=== PATIENT | female | born 1945 | race Caucasian/White ===

== ENCOUNTER → 2018-12-20 | Outpatient (CLI) | payer OTHER ==
[~2018-12-20] MED LIST: CIPROFLOXACIN500 M1 PO; FLAGYL500 MG PO; LISINOPRIL-HCT1 EACH PO; POTASSIUM20; POTASSIUM99 M1 PO; TUCKS1 EAC1 TOP; XANAX 0.5 MG0.5 MG PO; [UNRECOGNIZED DRUG - OTHER]
[2018-12-20 10:10] LABS: CREATININE 1.1 mg/dL (0.6-1.0)
== END ==
LOC: CAT 09:29
PROVIDERS: Family Medicine
DX: K57.30 Diverticulosis of large intestine without perforation or abscess without bleeding (principal); K76.89 Other specified diseases of liver; N28.1 Cyst of kidney, acquired; J98.11 Atelectasis; I70.8 Atherosclerosis of other arteries; R63.4 Abnormal weight loss

== ENCOUNTER → 2019-02-06 | Outpatient (CLI) | payer OTHER ==
[~2019-02-06] VITALS: Ht 172.7 cm; Wt 49.9 kg
[~2019-02-06] MED LIST changes: +AVAPRO 150 MG150 M1 PO; +LIPITOR 40 MG T40 M1 PO; +PLAVIX 75 MG TA75 M1 PO
[2019-02-06 08:56] VITALS: BP 145/99
[2019-02-06 10:26] LABS: HEMATOCRIT 39.6 % (37.0-47.0); HEMOGLOBIN 13.1 gm/dL (12.0-15.0); MCH 29.5 pg (26.0-34.0); MCV 89.2 fL (80.0-100.0); RBC 4.43 mil/uL (4.20-5.00); RDW 13.4 % (10.5-14.5); WBC 6.9 thou/uL (4.0-11.0)
[2019-02-06 10:35] LABS: CALCIUM 8.9 mg/dL (8.5-10.1); CREATININE 0.8 mg/dL (0.6-1.0); POTASSIUM 4.1 mmol/L (3.5-5.1)
== END | disposition home or self-care (01) ==
LOC: SPEC 08:11
PROVIDERS: Nuclear Medicine Nuclear Cardiology
DX: I70.213 Atherosclerosis of native arteries of extremities with intermittent claudication, bilateral legs (principal); I70.1 Atherosclerosis of renal artery; K55.1 Chronic vascular disorders of intestine; I77.4 Celiac artery compression syndrome; I10 Essential (primary) hypertension; K21.9 Gastro-esophageal reflux disease without esophagitis; Z86.010 Personal history of colon polyps; Z98.890 Other specified postprocedural states; Z87.891 Personal history of nicotine dependence; Z91.040 Latex allergy status; Z88.0 Allergy status to penicillin; Z88.8 Allergy status to other drugs, medicaments and biological substances; Z79.899 Other long term (current) drug therapy

== ENCOUNTER 2019-02-07 05:33 | Emergency (ER) | payer OTHER ==
[~2019-02-07] VITALS: Ht 172.7 cm; Wt 50.4 kg
[~2019-02-07 05:33] MED LIST changes: -LIPITOR 40 MG T40 M1 PO
[2019-02-07] MEDS ORDERED: LIPITOR 40 MG T40 M1 PO (05:53)
[2019-02-07 06:30] VITALS: BP 172/68
== END 2019-02-07 06:53 | disposition home or self-care (01) ==
LOC: ER 05:33
DX: L76.22 Postprocedural hemorrhage of skin and subcutaneous tissue following other procedure (principal); Y83.9 Surgical procedure, unspecified as the cause of abnormal reaction of the patient, or of later complication, without mention of misadventure at the time of the procedure; Y82.9 Unspecified medical devices associated with adverse incidents; I10 Essential (primary) hypertension; I73.9 Peripheral vascular disease, unspecified; Z88.0 Allergy status to penicillin; Z88.6 Allergy status to analgesic agent; Z88.8 Allergy status to other drugs, medicaments and biological substances; Z91.040 Latex allergy status; Z91.018 Allergy to other foods

== ENCOUNTER 2019-04-03 11:39 | Inpatient (IN) | payer OTHER ==
[~2019-04-03] VITALS: Ht 172.7 cm; Wt 52.8 kg
--- NOTE | ~2019-04-03 | HC ---
[facility] [place] [address] CONSULTATION Name: RIDGE EMDINA Room #: 453-P [facility] IN M.R.#: [id number] Admission: 04/03/19 ������������������ Attend Phys: Sudarshan Lay MD Discharge: ������������������ Date of : 43 Report #: [id number] THIS REPORT FOR: //name// CC: Sudarshan Singletary DO DATE OF SERVICE: 04/03/2019 PRIMARY CARE PHYSICIAN: Shireen Singletary DO. REFERRAL PHYSICIAN: Sudarshan Lay MD. REASON FOR REFERRAL: Hemoptysis, pneumonia. HISTORY OF PRESENT ILLNESS: The patient is a 73-year-old white female who presents to the ED with hemoptysis. A pulmonary consultation was requested. The patient has smoked most of her life, smoking less than a pack a day. She has never been diagnosed with COPD. She has been diagnosed with bronchitis for many years. More recently, the patient was treated for peripheral vascular disease. She had a stent placed in her lower extremities. Plavix was started around a few months ago. Ever since then, the patient has had episodic mild speckled hemoptysis starting about two months ago. She was treated for bronchitis. Hemoptysis did not persist. About three days ago, she started to notice bright red blood with cough. She could not quantify, but it appears to be less than a half a cupful. It is bright red on the tissue. Otherwise, denies any night sweats or chills. The patient has a weight loss around 08/2018 due to peptic ulcer disease. She states that her appetite has been stable. Weight has been stable. She denies any history of tuberculosis or exposure to TB. PAST MEDICAL HISTORY: Notable for hypertension, hyperlipidemia, peptic ulcer disease, peripheral artery disease, undergoing stent placement in lower extremities, had been on Plavix for the last few months. PAST SURGICAL HISTORY: Hysterectomy. ALLERGIES: TO PENICILLIN, IRON, ASPIRIN, REACTIONS UNSPECIFIED. SHE IS [facility] [address] [place] [address] CONSULTATION Name: RIDGE MEDINA Room #: 453-P [facility] IN ..#: [id number] Admission: 04/03/19 ������������������ Attend Phys: Sudarshan Lay MD Discharge: ������������������ Date of : 43 Report #: [id number] SENSITIVE TO LATEX AND NUTS. HOME MEDICATIONS: Plavix 75 mg once a day, Avapro, Lipitor, and Xanax. FAMILY HISTORY: Both parents passed. The patient's father was diagnosed with lung cancer in his 50s. SOCIAL HISTORY: She is . She lives with her son. She had three children, one child . As mentioned above, otherwise she denies any alcohol use. Tobacco history as mentioned above. She states she only smokes two cigarettes per day for many years. REVIEW OF SYSTEMS: As mentioned above, otherwise 10-point system review negative. PHYSICAL EXAMINATION: GENERAL: She is awake, alert, in no distress. VITAL SIGNS: Temperature is 97.9 degrees Fahrenheit, pulse is 95, respiratory rate is 18, blood pressure 130/74 mmHg, saturation is 90%. HEENT: Normocephalic, atraumatic. NECK: Supple, without any lymphadenopathy or thyromegaly. CHEST: Breath sounds are good with decrease in the left upper lung field. Few scattered crackles. No wheezes. CARDIOVASCULAR: Normal S1, S2. There is no murmur or gallop. There is no JVD. There is no carotid bruit. Pulses are 2+/4+ bilaterally. ABDOMEN: Soft, nontender, no organomegaly or masses felt. GENITOURINARY: Deferred. RECTAL: Deferred. EXTREMITIES: There is no edema, cyanosis or clubbing. LABORATORY DATA: CT chest and chest x-ray reviewed. This revealed left upper lobe and part of left lower lobe consolidation, questionable mass-like density. There is a rim of moderate left pleural effusion, which appears to be loculated. No evidence of pulmonary embolus. No evidence of mediastinal pathology. Chest x-ray shows similar findings. Electrolytes are normal. Creatinine is 1.1. Liver enzymes are grossly unremarkable. WBC 7200, hemoglobin is normal, platelets are normal, no evidence of bandemia, lymphopenia is present. Albumin 3.1. IMPRESSION: 1. Hemoptysis in this 73-year-old white female. She is on Plavix. Chest x-ray and chest CT show extensive consolidation involving the left upper lobe, part of the left lower lobe with questionable mass-like abnormalities. Hemoptysis, likely related to pneumonia. However, cannot rule out a malignancy. 2. Left upper lobe/left lower lobe consolidation, questionable lung mass. [address] [address] CONSULTATION Name: RIDGE MEDINA Room #: 453-P ADM IN M.R.#: [id number] Admission: 04/03/19 ������������������ Attend Phys: Sudarshan Lay MD Discharge: ������������������ Date of : 43 Report #: [id number] Would treat for pneumonia for now and reassess. Send sputum for cytology. 3. Lifelong history of tobacco use though the patient has smoked less than a pack a day. No known chronic obstructive lung disease. 4. Peripheral artery disease, recent stent and has been on Plavix for the last couple of months. 5. Hypertension. 6. History of peptic ulcer disease. For that reason, she has lost weight August last year. She states that her weight has been stable. RECOMMENDATION: Given hemoptysis, Plavix will need to be on hold. Would treat for presumed community-acquired pneumonia. Would treat for at least 7-10 days. Follow up chest x-ray. If infiltrates or density persist, will need to proceed with further diagnostic study including bronchoscopy. For now, send sputum for Gram stain, culture and sensitivity and cytology. She may need a cough suppressant for hemoptysis. We will also recommend quantitating hemoptysis. Should hemoptysis worsens, she may need urgent bronchoscopy. DVT prophylaxis in the form of SCDs recommended. Thank you for this consultation. ��������������������������������������������� ���������������������������������������� By: ��������������������������������������������� 1555 Tristan Johnson MD /nt
[2019-04-03 11:39] VITALS: BP 130/74
[~2019-04-03 11:39] MED LIST changes: +LIPITOR 40 MG T40 M1 PO
[2019-04-03 12:26] LABS: ABSOLUTE NEUTROPHILS 5.9 thou/uL (1.4-8.2); BASOPHILS 0.9 % (0.0-2.0); EOSINOPHILS 0.4 % (0.0-3.0); HEMATOCRIT 43.6 % (37.0-47.0); HEMOGLOBIN 14.4 gm/dL (12.0-15.0); LYMPHOCYTES 10.5 % (24.0-44.0); MCH 29.1 pg (26.0-34.0); MCV 88.2 fL (80.0-100.0); MONOCYTES 6.8 % (1.0-8.0); PLATELET COUNT 354 thou/uL (150-400); POLYS 81.4 % (36.0-66.0); RBC 4.94 mil/uL (4.20-5.00); RDW 13.3 % (10.5-14.5); WBC 7.2 thou/uL (4.0-11.0)
[2019-04-03 12:32] LABS: ANION GAP 8 mmol/L (7-16); BUN 19 mg/dL (7-18); CALCIUM 9.4 mg/dL (8.5-10.1); CHLORIDE 101 mmol/L (98-107); CO2 28 mmol/L (21-32); CREATININE 1.1 mg/dL (0.6-1.0); GLUCOSE 112 mg/dL (74-106); POTASSIUM 4.6 mmol/L (3.5-5.1); SODIUM 137 mmol/L (136-145)
[2019-04-03 12:42] LABS: ALBUMIN 3.1 g/dL (3.4-5.0); SGOT 20 U/L (15-37); SGPT 21 U/L (30-65); TOTAL BILIRUBIN 0.5 mg/dL (<0.1-1.0); TOTAL PROTEIN 6.9 g/dL (6.4-8.2); TROPONIN-I <0.06 ng/mL (<0.06)
[2019-04-03 15:38] VITALS: BP 112/38
[2019-04-03 16:25] VITALS: BP 144/80
--- NOTE | 2019-04-03 16:29 | NUR ---
FIRST ATTEMPT TO CALL REPORT; WAS TOLD OSIEL WOULD "NEED TO CALL BACK".
[2019-04-03 16:51] VITALS: BP 128/59
[2019-04-03] MEDS ORDERED: PROTONIX40 M1 PO (17:43)
[2019-04-03] MEDS ORDERED: VENTOLIN HFA 1818 GM INH (17:44)
[2019-04-03] MEDS ORDERED: BREO ELLIPTA 11 EACH IH (17:46)
--- NOTE | 2019-04-03 18:26 | NUR ---
PATIENT ARIVED FROM ED FOR CAP. ALERT X4, FROM HOME WITH SON. UP AB ISABEL, ABLE TO MAKE NEEDS KNOWN. CONSULT FOR DR CLARK FOR LUNG MASS. ADDMISSION ASSESMENT AND HISTORY COMPLETE. CALL LIGHT IN REACH.
[2019-04-03 19:47] VITALS: BP 124/63
--- NOTE | 2019-04-04 04:28 | NUR ---
Assumed pt care @ 2200. Pt is A/OX4,pleasant. Up ad wiley in room,voiding without any problems. VSS.Denies pain on assessment. Did have one episode of coughing blood,unable to obtain specimen since it was stuck on the toilet paper;specimen cup provided incase she does cough more.Resting quietly at this time no distress noted will continue to monitor pt.
[2019-04-04 04:43] VITALS: BP 103/66
[2019-04-04 05:32] LABS: CALCIUM 8.9 mg/dL (8.5-10.1); CREATININE 0.9 mg/dL (0.6-1.0); POTASSIUM 4.6 mmol/L (3.5-5.1)
[2019-04-04 05:46] LABS: HEMATOCRIT 36.8 % (37.0-47.0); MCH 29.1 pg (26.0-34.0); MCHC 32.8 g/dL (28.0-37.0); MCV 88.8 fL (80.0-100.0); RBC 4.15 mil/uL (4.20-5.00); WBC 6.2 thou/uL (4.0-11.0)
[2019-04-04 05:48] LABS: HEMOGLOBIN 12.1 gm/dL (12.0-15.0)
--- NOTE | 2019-04-04 07:37 | EKG ---
[address] [address] ELECTROCARDIOGRAM REPORT Name: RIDGE MEDINA Room #: 453-P ADM IN M.R.#: [id number] ������������������ Admission: 04/03/19 ������������������ Attend Phys: Sudarshan Lay MD Discharge: ������������������ Date of : 43 Report #: [id number] ����������������������������������������������������������������� [id number] THIS REPORT FOR: //name// [facility] ED Test Date: 2019-04-03 Test Time: 11:56:31 Pat Name: RIDGE MEDINA Department: Room: [facility] Gender: F Deputy Clerk Of Superior Court: calvin : 1945 Requested By: Tess Adhikari Order Number: [id number] MD: Antonio Cheng Measurements Intervals Holt Rate: 91 P: 91 MT: 161 QRS: 82 QRSD: 60 T: 79 QT: 336 QTc: 414 Interpretive Statements Sinus rhythm Anterior infarct, old Compared to ECG 09/30/2012 22:26:52 Atrial premature complex(es) no longer present Electronically Signed On 04-04-2019 7:37:03 CDT by Antonio Cheng [email or web address] ��������������������������������������������� <ELECTRONICALLY SIGNED> ���������������������������������������� By: Antonio Cheng MD, [facility] ��������������������������������������������� 04/04/19 0737 [id number] Antonio Cheng MD, [facility] /EPI
[2019-04-04 07:53] VITALS: BP 137/69
--- NOTE | 2019-04-04 09:30 | NUR ---
Nutrition: assess d/t low BMI. Pt admitted for PNA. Pt states that she lost 15-20 lbs in past 6 months d/t recent health issues, but has been gaining it back slowly. She has been thin most of her life. Her appetite is very good and she is aware of meal ordering. Provided list of food preferences. She does not want any nutritional supplements; she says she eats well without them. Consider low nutrition risk at this time.
--- NOTE | 2019-04-04 14:36 | NUR ---
PT ADMITTED RELATED TO PNA. CM REVIEWED CHART AND SPOKE WITH CARE TEAM. CM MET WITH PT AT BEDSIDE THIS DAY. PT IS A&O X4. CM ROLE INTRODCUED. PT INDICATED SHE LIVES IN A MOBILE HOME WITH HER SON WITH 7 STEPS TO ENTER AND NO STEPS INSIDE. 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 PT INDICATED NO HH HX. PT INDICATED SHE PLANS TO RETURN HOME ONCE MEDICALLY STABLE. CM TO FOLLOW INDICATED WITH DC PLANNING.
[2019-04-04 14:46] VITALS: BP 110/61
--- NOTE | 2019-04-04 18:53 | NUR ---
PT STABLE THROUGHOUT SHIFT. PT HAD NO C/O PAIN OR SOA. PT VERY COOPERATIVE WITH POC. FAMILY AT BEDSIDE. PT RESTING COMFORTABLY.
[2019-04-04 20:06] VITALS: BP 106/64
--- NOTE | 2019-04-05 02:14 | NUR ---
ASSUMED CARE OF PT FROM DAY SHIFT PT HAVE NO COMPLIANTS ESG PLAN FOR AM NO ACTIVE BLEEDING NOTED NO COUGH NOTED DRINKING PO FLUIDS AND SO FAR TOLERATING WELL, DISCUSSED PLAN OF CARE AND PT IS AGREEABLE, WILL CONITUE WITH CURRENT PLAN OF CARE.
[2019-04-05 04:29] VITALS: BP 134/81
[2019-04-05 07:09] VITALS: BP 148/70
--- NOTE | 2019-04-05 13:06 | NUR ---
Received awake on bed. Due medications given as prescribed. With IV at R FA- patent and intact. A+Ox3-4. Up ad wiley. Visited by relatives today. No active bleeding, hemoptysis noted today. Vital signs stable. Seen and examined by Dr. Lay- to continue antibiotics.
[2019-04-05 14:15] VITALS: BP 136/67
--- NOTE | 2019-04-05 15:16 | HC ---
[facility] [place] [address] CONSULTATION Name: RIDGE MEDINA Room #: 453-P ADM IN M.R.#: [id number] Admission: 04/03/19 ������������������ Attend Phys: Sudarshan Lay MD Discharge: ������������������ Date of : 43 Report #: [id number] THIS REPORT FOR: //name// CC: Sudarshan Singletary DATE OF SERVICE: 04/04/2019 TYPE OF REPORT: Infectious disease consultation. REASON FOR CONSULTATION: I was asked to evaluate concerning complicated pneumonia. HISTORY OF PRESENT ILLNESS: The patient is a 73-year-old smoker, longstanding, who presents with a 2-month history of cough with intermittent hemoptysis, which acutely worsened 2 days prior to her admission. She has had no history of pneumonia or chronic sinus disease. She has had no history of cancers. She has had a persistent cough with intermittent sputum production over the past 2 months. Around that time, she underwent bilateral femoral artery stenting. She is now on Plavix for anticoagulation, antiplatelet program. She denies any fever, chills or sweats. There has been no pleuritic pain. She denies any travel or HIV risk factors. She has had no exposure to other ill persons. No HIV risk factors reported. No tuberculosis exposure. She is a . ALLERGIES: PENICILLIN, IRON, ASPIRIN, LATEX and NUTS. MEDICATIONS: Plavix, which has been held, Avapro, Lipitor, Xanax and now on azithromycin, aztreonam and corticosteroids including Solu-Medrol. PAST MEDICAL HISTORY: Hypertension, hyperlipidemia, peptic ulcer disease, hiatal hernia, peripheral artery disease status post stents, hysterectomy and tobacco use. FAMILY HISTORY: Lung cancer. SOCIAL HISTORY: As noted above with no additions. REVIEW OF SYSTEMS: Ten-point review was negative other than what is described above, except for approximately 20-pound weight loss. PHYSICAL EXAMINATION: VITAL SIGNS: She is afebrile, hemodynamically stable. Saturations were normal. GENERAL: She is alert and cooperative and pleasant on room air. SKIN: Without rash or decubitus. HEENT: Eyes, without scleral icterus. Mouth was edentulous without mucositis. NECK: Supple, with no thyromegaly or mass. [facility] [address] [place] [address] CONSULTATION Name: RIDGE MEDINA Room #: 453-P ADM IN M.R.#: [id number] Admission: 04/03/19 ������������������ Attend Phys: Sudarshan Lay MD Discharge: ������������������ Date of : 43 Report #: [id number] LUNGS: With decreased breath sounds in the right posterior chest. There was some consolidation heard in the mid posterior chest. No rub. HEART: Regular, without murmur, gallop or rub. ABDOMEN: Soft and nontender. No hepatosplenomegaly or mass. The patient was very thin. EXTREMITIES: Without clubbing, cyanosis or edema. Cranial nerves intact. Strength in the upper and lower extremities was normal. Mood normal. LABORATORY STUDIES: Hemoglobin 12.1; white count 6.2 and platelet count 337,000. Sodium 138, potassium 4.6, bicarbonate 27 and creatinine 0.9. Liver function test normal. BNP 272. Lactate 1.2. RADIOLOGICAL DATA: Chest x-ray with a left upper lobe and lower lobe infiltrate with associated effusion. CT scan confirms the same with moderate effusion, which does appear to layer. Blood cultures are negative to date. Sputum is just sent down today. Urine antigens are pending. IMPRESSION: A 73-year-old long-term smoker with left lung consolidating infiltrate associated with hemoptysis and moderate left effusion. The patient is not toxic, does not have any fever or leukocytosis. She has been anticoagulated for peripheral vascular disease. I am considering community-acquired pneumonia versus pulmonary hemorrhage. Underlying malignancy is not yet ruled out. I doubt vasculitic disease or other granulomatous process. She is penicillin allergic. RECOMMENDATIONS: We will continue with azithromycin and cefepime. Await sputum culture. Check legionella PCR urine antigens. Check serologic studies TB screen. We will follow serial x-rays. May consider thoracentesis for further diagnostic testing. Check MRSA screen and HIV testing. ��������������������������������������������� <ELECTRONICALLY SIGNED> ���������������������������������������� By: Curt Larsen MD ��������������������������������������������� 04/05/19 1516 [id number] Curt Larsen MD /nt
--- NOTE | 2019-04-05 15:46 | NUR ---
PT IS TO HAVE A BRONCHOSOPY TOMORROW. CM TO FOLLOW INDICATED WITH DC PLANNING.
[2019-04-05 16:01] LABS: HIV ANTIBODY Non Reactive (Non Reactive)
[2019-04-05 20:07] VITALS: BP 141/58
--- NOTE | 2019-04-06 03:55 | NUR ---
ASSUMED CARE OF PT AT 1900HRS. PT IS AOX4 AND IS UP AD ISABEL. ABX TREATMENT CONTINUED. PT NPO FROM MN. NO OTHER S/S OF ACUTE DISTRESS. NO N/V AT THIS TIME. NO OTHER S/S OF ACUTE DISTRESS. WILL CONTINUE TO MONITOR.
[2019-04-06 04:49] VITALS: BP 121/59
[2019-04-06 06:41] VITALS: BP 146/74
[2019-04-06 11:30] VITALS: BP 138/90
--- NOTE | 2019-04-06 14:10 | NUR ---
TOWARDS POC PT HAD BRONCSCOPY AT SHIFT CHANGE, PT RETURNED IN HER ROOM AT AROUND 11OO. VSS, AFEBRILE, DENIES PAIN. NO CONCERNS VOICED. FAMILY AT BEDSIDE. WILL CONTINUE TO MONITOR.
[2019-04-06 20:30] VITALS: BP 124/75
--- NOTE | 2019-04-07 02:16 | NUR ---
ASSUMED CARE OF PT AT 1900HRS. PT IS AOX4 AND UP AD ISABEL. BREATHING TREATMENT AND O2 VIA NC CONTINUED. ABX TREATMENT CONTINUED. NO MAJOR COMPLICATIONS POST BRONCHOSCOPY W/BIOPSY. NO OTHER S/S OF ACUTE DISTRESS. WILL CONTINUE TO MONITOR.
[2019-04-07 03:40] VITALS: BP 126/77
[2019-04-07 04:33] LABS: HEMATOCRIT 35.8 % (37.0-47.0); HEMOGLOBIN 11.6 gm/dL (12.0-15.0); MCH 28.8 pg (26.0-34.0); MCHC 32.4 g/dL (28.0-37.0); MCV 89.1 fL (80.0-100.0); RBC 4.02 mil/uL (4.20-5.00); RDW 13.5 % (10.5-14.5); WBC 11.3 thou/uL (4.0-11.0)
[2019-04-07 04:54] LABS: CALCIUM 8.7 mg/dL (8.5-10.1); CREATININE 0.8 mg/dL (0.6-1.0); POTASSIUM 4.6 mmol/L (3.5-5.1)
[2019-04-07 07:55] VITALS: BP 139/64
[2019-04-07] MEDS ORDERED: KEFLEX500 M1 PO (10:18)
[2019-04-07 10:43] VITALS: BP 139/64
--- NOTE | 2019-04-07 11:34 | NUR ---
PT VS STABLE THIS MORNING. PT'S BREATHING IS MUCH IMPROVED AND SHE IS ANXIOUS TO DISCHARGE. PT LEFT UNIT VIA WHEELCHAIR TO PRIVATE VEHICLE. PT GIVEN DC INSTRUCTIONS, F/U INSTRUCTIONS AND RX.
[2019-04-07 23:06] LABS: ADENOVIRUS Negative (Negative); INFLUENZA A Negative (Negative); INFLUENZA B Negative (Negative); METAPNEUMOVIRUS Negative (Negative); PARAINFLUENZA 1 Negative (Negative); PARAINFLUENZA 2 Negative (Negative); PARAINFLUENZA 3 Negative (Negative); RHINOVIRUS Negative (Negative); RSV A Negative (Negative); RSV B Negative (Negative)
== END 2019-04-07 11:42 | disposition home or self-care (01) | DRG 177 ==
LOC: ER 11:39 → 4W 13:36 → EROBS 13:36 → 4W 16:55 → ENTRNSPT 04-07 11:41 → 4W 04-07 11:42
PROVIDERS: Nurse Practitioner Family; Specialist; ADMIT Hospitalist
PROC: 0BDB8ZX Extraction of Left Lower Lobe Bronchus, Via Natural or Artificial Opening Endoscopic, Diagnostic (ICD-10-PCS; principal; 2019-04-06)
PROC: 0BBB8ZX Excision of Left Lower Lobe Bronchus, Via Natural or Artificial Opening Endoscopic, Diagnostic (ICD-10-PCS; principal; 2019-04-06)
PROC: 0B9J8ZX Drainage of Left Lower Lung Lobe, Via Natural or Artificial Opening Endoscopic, Diagnostic (ICD-10-PCS; principal; 2019-04-06)
DX: J69.0 Pneumonitis due to inhalation of food and vomit (principal); J96.01 Acute respiratory failure with hypoxia; R04.2 Hemoptysis; I10 Essential (primary) hypertension; E78.5 Hyperlipidemia, unspecified; I73.9 Peripheral vascular disease, unspecified; K44.9 Diaphragmatic hernia without obstruction or gangrene; Z90.710 Acquired absence of both cervix and uterus; Z86.010 Personal history of colon polyps; Z88.0 Allergy status to penicillin; Z88.6 Allergy status to analgesic agent; Z91.040 Latex allergy status; Z91.018 Allergy to other foods; Z87.11 Personal history of peptic ulcer disease; Z95.820 Peripheral vascular angioplasty status with implants and grafts; Z87.891 Personal history of nicotine dependence; Z80.1 Family history of malignant neoplasm of trachea, bronchus and lung; Z71.6 Tobacco abuse counseling; Z79.899 Other long term (current) drug therapy
CPT/HCPCS: 10040; 10045; 62110; 62900; 70005

== ENCOUNTER → 2019-04-13 | Outpatient (CLI) | payer OTHER | LOC: RAD 09:03 | DX: J18.9 Pneumonia, unspecified organism (principal); J90 Pleural effusion, not elsewhere classified ==

== ENCOUNTER → 2019-05-03 | Outpatient (CLI) | payer OTHER ==
[~2019-05-03] MED LIST changes: +BREO ELLIPTA 11 EACH IH; +KEFLEX500 M1 PO; +PROTONIX40 M1 PO; +VENTOLIN HFA 1818 GM INH
== END ==
LOC: MRI 10:42
DX: I67.82 Cerebral ischemia (principal); R90.82 White matter disease, unspecified; C34.32 Malignant neoplasm of lower lobe, left bronchus or lung; Z88.8 Allergy status to other drugs, medicaments and biological substances; Z88.0 Allergy status to penicillin

== ENCOUNTER 2019-06-01 08:25 | Inpatient (IN) | payer OTHER ==
[2019-06-01] VITALS (8 sets, daily range): BP systolic 84–165; BP diastolic 57–87
[~2019-06-01] VITALS: Ht 165.1 cm; Wt 50.3 kg
[2019-06-01 08:50] LABS: ABSOLUTE NEUTROPHILS 6.2 thou/uL (1.4-8.2); BASOPHILS 0.6 % (0.0-2.0); EOSINOPHILS 0.7 % (0.0-3.0); HEMATOCRIT 40.7 % (37.0-47.0); HEMOGLOBIN 13.1 gm/dL (12.0-15.0); LYMPHOCYTES 5.1 % (24.0-44.0); MCH 28.6 pg (26.0-34.0); MCHC 32.3 g/dL (28.0-37.0); MCV 88.7 fL (80.0-100.0); MONOCYTES 9.7 % (1.0-8.0); PLATELET COUNT 307 thou/uL (150-400); POLYS 83.9 % (36.0-66.0); RBC 4.59 mil/uL (4.20-5.00); RDW 13.9 % (10.5-14.5); WBC 7.4 thou/uL (4.0-11.0)
[2019-06-01 09:00] LABS: CALCIUM 9.1 mg/dL (8.5-10.1); CREATININE 0.9 mg/dL (0.6-1.0); POTASSIUM 4.3 mmol/L (3.5-5.1)
[2019-06-01 09:02] LABS: APTT 22.6 Seconds (24.5-32.8); PROTIME 10.8 Seconds (9.3-11.4)
[2019-06-01] MEDS ORDERED: PLAVIX 300 MG300 M1 PO (09:55)
[2019-06-01] MEDS ORDERED: XANAX 0.25 MG0.25 MG PO (09:55)
[2019-06-01] MEDS ORDERED: REGLAN 10 MG TA10 MG PO (09:55)
[2019-06-01] MEDS ORDERED: TESSALON PERLE100 MG PO (09:56)
--- NOTE | 2019-06-01 10:48 | NUR ---
PT ORIENTED TO ROOM AND UNIT. BED LOW AND LOCKLED, SIDE RAILS UPX 3, CALL LIHT IN REACH. TELE APPLIED, PT SAFETY NOTE SIGNED. PT INFORMED ME THAT SHE WISHES TO BE DNR STATUS. WILL PASS ONTO ATTENDING AND CONTINUE TO ASSESS.
--- NOTE | 2019-06-01 15:42 | NUR ---
DISCHARGE PLANNING. PATIENT ADMITTED FROM HOME WITH [facility]. PLAN IS FOR PATIENT TO RETURN TO HOME WITH [facility]. CLINICAL INFORMATION FAXED TO [facility]. FOLLOWING TO ASSIST WITH DISCHARGE.
--- NOTE | 2019-06-01 15:48 | NUR ---
INITIAL ASSESSMENT: Received consult due to pt being on hospice at home. BELEN reviewed chart and spoke with nursing. Pt was admitted from home due to hemoptysis. Pt with hx of metastatic lung cancer. BELEN met with pt and sons at bedside. Introduced role of SW. Pt is alert/orientated x 4. Pt currently lives at home with her son, Dk. Prior to admission, pt was ambulatory and has home O2 in place. Pt has been on hospice with [facility] for less than a month. Plan is for pt to return home with hospice. Pt states she did revoke hospice to be admitted to the hospital. train planner faxed clinical info to [facility] for review. BELEN notified [facility] liaison of pt's admission. BELEN is following to assist as needed with discharge planning.
[2019-06-02 00:08] VITALS: BP 138/84
[2019-06-02 03:20] VITALS: BP 96/66
[2019-06-02 05:33] LABS: ABSOLUTE NEUTROPHILS 3.8 thou/uL (1.4-8.2); BASOPHILS 1.4 % (0.0-2.0); HEMATOCRIT 36.4 % (37.0-47.0); HEMOGLOBIN 11.9 gm/dL (12.0-15.0); LYMPHOCYTES 4.8 % (24.0-44.0); MCH 29.1 pg (26.0-34.0); MCHC 32.8 g/dL (28.0-37.0); MCV 88.5 fL (80.0-100.0); MONOCYTES 1.7 % (1.0-8.0); PLATELET COUNT 299 thou/uL (150-400); POLYS 92.1 % (36.0-66.0); RBC 4.11 mil/uL (4.20-5.00); RDW 13.5 % (10.5-14.5); WBC 4.1 thou/uL (4.0-11.0)
[2019-06-02 05:50] LABS: CALCIUM 8.7 mg/dL (8.5-10.1); CREATININE 0.8 mg/dL (0.6-1.0); POTASSIUM 4.7 mmol/L (3.5-5.1)
[2019-06-02 07:38] VITALS: BP 118/90
--- NOTE | 2019-06-02 12:04 | NUR ---
BELEN reviewed chart and spoke with nursing and attending physician. Pt to have thoracentesis today. Oncology consulted. Pt may consider round of chemo. Pt admitted from home. Pt revoked hospice services through [facility] to come to the hospital. BELEN is following to assist as needed with discharge planning.
--- NOTE | 2019-06-02 12:19 | NUR ---
PATIENT OFF UNIT TO ULTRASOUND FOR THORACENTESIS. NURSE HAS NOT WITNESSED BLEEDING TODAY.
[2019-06-02 16:09] VITALS: BP 120/90
--- NOTE | 2019-06-02 20:10 | NUR ---
PATIENT RETURNED FROM ULTRASOUND WITH LEFT BACK DRESSING CLEAN AND INTACT. NO S/S RESPIRATORY DISTRESS. PATIENT EXPRESSED PAIN. NURSE INFORMED PHYSICIAN AND ORDER RECEIVED FOR A COLD PACK. SHE EXPRESSED THIS HELPED. ASSESSMENTS AND VITAL SIGNS DOCUMENTED. NURSE CHECKED BACK THORACENTESIS SITE FREQUENTLY. AT LAST CHECK IT THE DRESSING WAS STILL CLEAN AND INTACT, ONLY MINIMAL SHADOWING NOTED. REPORT GIVEN TO DROP FORGE OPERATOR RN FOR CONTINUATION OF CARE.
[2019-06-03 03:39] VITALS: BP 125/80
[2019-06-03 05:11] LABS: HEMATOCRIT 33.6 % (37.0-47.0); HEMOGLOBIN 10.8 gm/dL (12.0-15.0); MCH 28.6 pg (26.0-34.0); MCHC 32.2 g/dL (28.0-37.0); MCV 88.8 fL (80.0-100.0); RBC 3.79 mil/uL (4.20-5.00); RDW 13.7 % (10.5-14.5); WBC 12.6 thou/uL (4.0-11.0)
[2019-06-03 07:52] VITALS: BP 138/73
[2019-06-03 16:08] VITALS: BP 139/83
[2019-06-03 19:50] VITALS: BP 138/77
--- NOTE | 2019-06-03 20:43 | NUR ---
PATIENT ALERT AND ORIENTED X4, SINUS TACHYCARDIA ON SENIOR BUSINESS BROKER. ON 2L NASAL CANNULA. UP WITH STANDBY ASSISTANCE TO BEDSIDE COMMODE. PATIENT UNDERSTANDS AND FOLLOW NURSING PLAN OF CARE. NO SIGNS OF ACUTE DISTRESS NOTED AT THIS TIME. WILL CONTINUE TO MONITOR.
[2019-06-04 04:45] VITALS: BP 150/84
[2019-06-04 05:15] LABS: CALCIUM 8.4 mg/dL (8.5-10.1); CREATININE 0.7 mg/dL (0.6-1.0); POTASSIUM 4.2 mmol/L (3.5-5.1)
[2019-06-04 05:42] LABS: ABSOLUTE NEUTROPHILS 15.1 thou/uL (1.4-8.2); BASOPHILS 0.1 % (0.0-2.0); HEMATOCRIT 33.8 % (37.0-47.0); HEMOGLOBIN 10.7 gm/dL (12.0-15.0); LYMPHOCYTES 3.6 % (24.0-44.0); MCH 28.2 pg (26.0-34.0); MCHC 31.8 g/dL (28.0-37.0); MCV 88.9 fL (80.0-100.0); MONOCYTES 10.8 % (1.0-8.0); PLATELET COUNT 313 thou/uL (150-400); POLYS 85.5 % (36.0-66.0); WBC 17.7 thou/uL (4.0-11.0)
--- NOTE | 2019-06-04 07:17 | NUR ---
RECEIVED REPORT AND ASSUMED PATIENT CARE AT 1900. PATIENT LYING IN BED AND IS NOTED TO BE ON 2 L NC. PATIENT IS AAOX4 AND VERY PLEASANT. PATIENT ALSO NOTED TO COUGH UP MEDIUM AMOUNTS OF BLOOD DURING THIS SHIFT. PATIENT AMBULATED TO [facility] WITH STANDBY ASSISTANCE. HOURLY ROUNDING COMPLETED AND ASSESSMENTS CHARTED. NO ACUTE EVENTS OCCURRED AND VS REMAINED STABLE DURING THIS SHIFT.
[2019-06-04 08:02] VITALS: BP 148/88
[2019-06-04 16:39] VITALS: BP 149/79
[2019-06-04 20:13] VITALS: BP 146/69
--- NOTE | 2019-06-04 20:22 | NUR ---
NO BLEEDING NOTED TODAY...HAS BEEN OFF PLAVIX SINCE ADMISSION...
--- NOTE | 2019-06-04 22:25 | NUR ---
DISCONTINUED TELEMETRY PER ORDERS. INFORMED PATIENT WILL BE MOVED TO MED SURG UNIT TONIGHT. PATIENT STATES SHE WILL CALL FAMILY IN AM ABOUT MOVE THAT SHE DOES NOT WANT THEM CALLED TONIGHT. DENIES COMPLAINTS OF PAIN TONIGHT. STATES HAD ONLY ONE EPISODE OF BLEEDING FROM THROAT TODAY. REQUEST COUGH SYRUP AND XANAX FOR BEDTIME AND MEDS GIVEN. CONTINUE TO ASSES. ATTEMPTED TO CALL REPORT TO 4E.
--- NOTE | 2019-06-04 23:00 | NUR ---
A VERY DELIGHTFUL LITTLE PT ADMITTED FROM [facility] WITH DX OF LUNG CANCER PT WILL BE GOING ON HOSPICE. ALERT ASND ORIENTED. GET UP TO BED SIDE COMMODE TO VOID. DENIES PAIN AT PRESENT. WILL CONT TO MONITOR.
[2019-06-05 03:59] VITALS: BP 124/58
--- NOTE | 2019-06-05 04:45 | NUR ---
PT BECAME VERY ANXIOUS AND HAD A LG AMT OF BLOODY SPUTUM. PT WANTS SOMETHING TO HELP HER RELAX. ATIVAN 0.5 MG IV GIVEN PER ORDER DR WRIGHT. WILL CONT TO MONITOR.
--- NOTE | 2019-06-05 06:00 | NUR ---
PT RESTING QUIETLY. STATESS TO FEEL SO MUCH BETTER. NO FURTHER BLOODY SPUTUM. REMAINS A DNR
--- NOTE | 2019-06-05 07:35 | HC ---
[facility] [place] [address] CONSULTATION Name: RIDGE MEDINA Room #: 423-1 ADM IN M.R.#: [id number] Admission: 06/01/19 ������������������ Attend Phys: Ashley Figueroa Discharge: ������������������ Date of : 43 Report #: [id number] THIS REPORT FOR: //name// CC: Shireen Figueroa MD REASON FOR CONSULTATION: Stage 4 lung cancer. HISTORY OF PRESENT ILLNESS: The patient is a very pleasant 73-year-old female who has a history of stage 4 nonsmall cell lung cancer that is mutation negative, and PD-L1 low expression. We had previously met as an outpatient to discuss chemotherapy and at that time, she had not wished to pursue chemotherapy and went with hospice. About now on , she started having hemoptysis. She had been coughing a bit more than usual. No fevers. No headache. No new arm or leg swelling. Appetite had been about the same. Swallowing had been okay. She thought she felt some slight gurgling in her upper chest. No sinus pressure, no one else had been sick. No diarrhea, no constipation. She was admitted. Here, a chest x-ray showed some consolidation, I believe it is in the left lung that is worse than before. The patient was begun on antibiotics, steroids and aerosol treatments and maybe doing slightly better. Her coags were normal, though she had been on Plavix. PAST MEDICAL HISTORY: Notable for the history of stage 4, negative mutation, low PD-L1 expression adenocarcinoma of the left lung that is metastatic. Also, history of coronary artery disease, history of peripheral arterial disease with stenting by Dr. Barber. Also, hypertension, hyperlipidemia and I believe coronary artery disease, but we will need to clarify that. COPD. SOCIAL HISTORY: She is retired, used to work at [employer] in [employer]. She is . She had been a former smoker, a pack per day about 15 years, quit in 10/2000. Alcohol, no. Street drugs, no. MEDICATIONS: Here in the hospital current medications include vancomycin 750 mg q.12, atorvastatin 40 mg daily, acetylcysteine 600 mg respiratory therapy t.i.d., pantoprazole 40 mg daily, levofloxacin q.48 hours, methylprednisolone 62.5 mg IV q.8, metoclopramide 10 mg q.4 p.r.n., guaifenesin q.4 p.r.n., albuterol sulfate respiratory therapy as needed, benzonatate 100 mg q.8 p.r.n., Xanax 0.25 b.i.d. p.r.n., MiraLax 17 grams daily, nitroglycerin p.r.n. She is on clopidogrel, which I might consider stopping with her hemoptysis. PHYSICAL EXAMINATION: [facility] [address] [facility] [place] [address] CONSULTATION Name: RIDGE MEDINA Room #: 423-1 ADM IN M.R.#: [id number] Admission: 06/01/19 ������������������ Attend Phys: Ashley Figueroa Discharge: ������������������ Date of : 43 Report #: [id number] GENERAL: The patient appears her stated age. VITAL SIGNS: Weight is 111 pounds or 50.3 kilograms, height 5 feet 5 inches, which is 165 cm. MOOD: The patient is alert and pleasant. NEUROLOGIC: Speech and thought pattern normal. Moving extremities. HEENT: Oropharynx clear. LUNGS: Have some decreased breath sounds in the left upper lobe. HEART: Appears regular rate. LYMPHATICS: No enlarged lymph nodes in the supraclavicular, cervical, axillary or inguinal region. ABDOMEN: Soft, without masses. EXTREMITIES: Without clubbing, cyanosis or edema. ASSESSMENT AND PLAN: 1. Stage 4 nonsmall cell lung cancer, mutation negative with low expression PD-L1. Patient had been on hospice. Discussed options if she gets stronger, could consider chemotherapy. I am worried that will not be quick enough to help her bleeding if it continues, but if her hemoptysis settles down, but this is partly related to inflammatory conditions, chemotherapy could be beneficial with potential response rate of between 20% and 40%. If she is off steroids, we could add checkpoint inhibitors and this might increase response rate and also give a chance for longer term benefit. It is also perfectly reasonable to continue with hospice. 2. Hemoptysis. May be slightly better. Hopefully, there is a component of inflammation or pneumonia and by treating pneumonia with steroids this will help it, had been considering bronchoscopy if bleeding is decreased. We will probably not consider bronchoscopy as it might knock loose scabs and cause further bleeding. We will defer to Pulmonary. 3. Possible pneumonitis. Continue antibiotics, steroids and aerosols. 4. History of coronary artery disease and peripheral arterial disease. Past stenting per others. 5. Hypertension per others. 6. Hyperlipidemia per others. 7. Chronic obstructive pulmonary disease, aerosol treatments. 8. Nerves: Xanax. We will follow with you. ��������������������������������������������� <ELECTRONICALLY SIGNED> ���������������������������������������� By: Brigido Perez MD ��������������������������������������������� 06/05/19 [id number] Brigido Perez MD /nt
[2019-06-05 08:00] VITALS: BP 127/73
--- NOTE | 2019-06-05 13:58 | NUR ---
BELEN reviewed chart and spoke with nursing and attending physician. Pt was transferred to from . Pt to have Pleurx catheter placed. BELEN met with pt and son at bedside to discuss discharge planning. Pt states that her plan is to return home and resume hospice services at home with [facility]. SW updated [facility] liaison, Jake. BELEN faxed clinical updates to [facility] for review. Plan is for pt to discharge home with [facility] when medically stable. BELEN is following to assist as needed with discharge planning.
[2019-06-05 16:10] VITALS: BP 114/57
--- NOTE | 2019-06-05 16:30 | NUR ---
ASSUMED CARE OF PT AT 0700. ASSESSMENT CHARTED. A&O,X4. DENIES PAIN. LEFT LUNG SOUNDS DIM/ABSENT, RIGHT SIDE CLEAR/DIM. [address] NEW ORDERS FOR IR PLEURX CATHETER INSERTION TODAY. PT NPO AFTER BREAKFAST. PT LEFT VIA CART AT 14:20, RETURNED AT 15:30. LOWER LEFT CHEST DRESSING, C/D/I. VSS. FAMILY AT BEDSIDE. WILL CONTINUE TO MONITOR FREQUENTLY UNTIL EOS.
[2019-06-05 16:57] VITALS: BP 122/58
[2019-06-05 17:52] VITALS: BP 107/58
[2019-06-05 19:50] VITALS: BP 114/58
--- NOTE | 2019-06-06 03:40 | NUR ---
ASSUMED PT CARE AROUND 1900. A&OX4. PLEASANT AND COOPERATIVE. C/O PAIN AT NEW PLEURX CATHETER SITE NEAR LEFT LOWER CHEST. PAIN MEDICATION GIVEN WITH SOME RELIEF. PT SLEPT MOST OF THE NIGHT. RESP EVEN AND UNLABORED. PT HAD ONE EPISODE OF COUGHING UP BLOOD. COUGHING IMPROVED WITH COUGH MEDICATION. UP TO BSC TO VOID. TOLERATED WELL. FALL PRECAUTIONS IN PLACE. PROGRESSING SLOWLY TOWARD POC GOALS. WILL CONTINUE TO MONITOR FURTHER.
[2019-06-06 04:35] VITALS: BP 131/70
[2019-06-06 07:40] VITALS: BP 140/76
[2019-06-06 15:40] VITALS: BP 121/45
--- NOTE | 2019-06-06 16:19 | NUR ---
Assessment completed.vss.Pt c/o back pain early this am.Dr Figueroa notified. Fentanyl patch applied with relief.Pt family here,updates given.Pt will be dc home with hospice care in am.Pt in and out of bed today with sba.No further c/o.Will continue to monitor.
--- NOTE | 2019-06-06 17:04 | NUR ---
S/W MADHAVI FROM [facility] AT HOME AND ALERTED OF PLANNED DC FOR TOMORROW. ALERTED THEM THAT PT HAD PLEURX DRAIN PLACED. FAXED FACE SHEET, LAST PROGRESS NOTE FROM DR WRIGHT AND DR FAUSTIN & IR REPORT ON PLEURX DRAIN PLACEMENT.
[2019-06-06 19:13] VITALS: BP 134/53
[2019-06-07 04:01] VITALS: BP 127/57
--- NOTE | 2019-06-07 04:01 | NUR ---
PT RESTED GOOD, ALERT/ORIENTED X4, TRANSFERS GOOD WITH MINIMAL ASSIST TO THE BSC, KEPT ON OXYGEN 2.5 L, SOB WITH EXERTION, PLEURX CATH WITH DRESSING, SCDS TO BLE, NO NAUSEA NOTED, DENIES PAIN, TOLERATING ORAL INTAKE, ABLE TO TURN SELF, PT VERBALIZED ABOUT DESIRE TO PROLONG LIFE IF ABLE WITHOUT USING LIFE SAVING DEVICES, HOURLY ROUNDING, MONITORED.
[2019-06-07 08:00] VITALS: BP 144/73
[2019-06-07] MEDS ORDERED: HYDROCODON-ACE1 EAC7 PO (09:12)
[2019-06-07] MEDS ORDERED: DURAGESIC1 EAC4 TRANSDERM (09:12)
[2019-06-07] MEDS ORDERED: PREDNISONE 10 M10 MG PO (09:17)
[2019-06-07 10:38] VITALS: BP 144/73
[2019-06-07 11:21] VITALS: BP 144/73
--- NOTE | 2019-06-07 13:46 | NUR ---
PT DISCHARGING TODAY TO HOME WITH [facility] FAXED DC ORDERS/SUMMARY SPOKE WITH [facility] IN INTAKE AND THEY RECEIVED DC ORDERS AND WILL NOTIFY PT TIME OF VISITS.
--- NOTE | 2019-06-07 14:59 | NUR ---
Assessment completed.vss.Pt in and out of bed with sba.Assessment completed. vss.Pt in bed for breakfast.Good appetite.Dr Figueroa here,dc order noted. Received call from [facility] about meeting pt at the hospital prior to dc home today.Later this afternoon,last pattern grader came and updates given.Pleurx supplies shown to him and was told that it will be taken care of when pt dc home and also instruct pt family.Drsg change done to pleurx site.Saline lock dc'd.At 1417,pt dc home [place] with son after reviewed dc summary with pt.
== END 2019-06-07 14:17 | disposition hospice, home (50) | DRG 180 ==
LOC: ER 08:25 → 3W 09:41 → EROBS 09:41 → 3W 10:06 → 4E 06-04 23:23 → ENTRNSPT 06-07 13:56 → EDTRNSPTSTS 06-07 13:58 → 4E 06-07 14:17
PROVIDERS: Emergency Medicine; Nurse Practitioner; Pediatrics; ADMIT Hospitalist
PROC: 0B9P30Z Drainage of Left Pleura with Drainage Device, Percutaneous Approach (ICD-10-PCS; principal; 2019-06-05)
PROC: 0W9B3ZZ Drainage of Left Pleural Cavity, Percutaneous Approach (ICD-10-PCS; principal; 2019-06-05)
DX: C34.90 Malignant neoplasm of unspecified part of unspecified bronchus or lung (principal); J18.9 Pneumonia, unspecified organism; J96.21 Acute and chronic respiratory failure with hypoxia; J96.22 Acute and chronic respiratory failure with hypercapnia; E43 Unspecified severe protein-calorie malnutrition; R04.2 Hemoptysis; J44.0 Chronic obstructive pulmonary disease with (acute) lower respiratory infection; J91.8 Pleural effusion in other conditions classified elsewhere; Z68.1 Body mass index [BMI] 19.9 or less, adult; I10 Essential (primary) hypertension; I73.9 Peripheral vascular disease, unspecified; K57.90 Diverticulosis of intestine, part unspecified, without perforation or abscess without bleeding; I25.10 Atherosclerotic heart disease of native coronary artery without angina pectoris; E78.5 Hyperlipidemia, unspecified; Z66 Do not resuscitate; Z60.2 Problems related to living alone; D64.9 Anemia, unspecified; Z51.5 Encounter for palliative care; F41.9 Anxiety disorder, unspecified; Z95.820 Peripheral vascular angioplasty status with implants and grafts; Z79.02 Long term (current) use of antithrombotics/antiplatelets; Z86.010 Personal history of colon polyps; Z90.710 Acquired absence of both cervix and uterus; Z79.899 Other long term (current) drug therapy; Z88.0 Allergy status to penicillin; Z88.6 Allergy status to analgesic agent; Z91.040 Latex allergy status; Z91.018 Allergy to other foods; Z87.891 Personal history of nicotine dependence; Z99.81 Dependence on supplemental oxygen; Z87.11 Personal history of peptic ulcer disease
CPT/HCPCS: 10783; 10879

== ENCOUNTER 2019-06-13 12:25 | Emergency (ER) | payer OTHER ==
[~2019-06-13] VITALS: Ht 165.1 cm; Wt 51.7 kg
[~2019-06-13 12:25] MED LIST changes: +DURAGESIC1 EAC4 TRANSDERM; +HYDROCODON-ACE1 EAC7 PO; +PLAVIX 300 MG300 M1 PO; +PREDNISONE 10 M10 MG PO; +REGLAN 10 MG TA10 MG PO; +TESSALON PERLE100 MG PO; +XANAX 0.25 MG0.25 MG PO
[2019-06-13 14:25] VITALS: BP 131/74
== END 2019-06-13 14:25 | disposition home or self-care (01) ==
LOC: ER 12:25
DX: J90 Pleural effusion, not elsewhere classified (principal); I10 Essential (primary) hypertension; K21.9 Gastro-esophageal reflux disease without esophagitis; F41.9 Anxiety disorder, unspecified; J44.9 Chronic obstructive pulmonary disease, unspecified; Z85.118 Personal history of other malignant neoplasm of bronchus and lung; Z90.710 Acquired absence of both cervix and uterus; Z87.891 Personal history of nicotine dependence; Z88.0 Allergy status to penicillin; Z91.040 Latex allergy status; Z88.6 Allergy status to analgesic agent; Z91.048 Other nonmedicinal substance allergy status; Z91.018 Allergy to other foods